=== PATIENT | male | born 1965 | race Caucasian/White ===

== ENCOUNTER → 2019-10-18 16:42 | Outpatient (CLI) | payer BC, SELFPAY ==
--- NOTE | ~2019-10-18 | MR_ITS ---
EXAMINATION: MR lumbar spine wo con DATE: 10/18/2019 17:48 INDICATION: Chronic right-sided low back pain without sciatica. TECHNIQUE: Magnetic resonance imaging (MRI) of the lumbar spine was performed without intravenous con trast. Sequences included sagittal T2-weighted FSE, sagittal T2-weighted FS FSE, sagittal STIR FSE, s agittal T1-weighted FSE, and axial T2-weighted FSE. COMPARISON: Lumbar spine MRI 10/17/2014 FINDINGS: There is 3 mm retrolisthesis of L1 on L2 and L2 on L3, 9 mm retrolisthesis of L3 on L4, and 3 mm anterolisthesis of L4 on L5. There are Schmorl's nodes at most levels. There is mildly decrease d disc height at L1-L2 and L2-L3 and moderately decreased disc height at L3-L4. The distal spinal cor d signal intensity is normal. The conus medullaris is at L1. The following disc levels are specifical ly discussed: L1-L2: There is a left central extrusion. There is mild bilateral facet joint osteoarthritis. There i s mild left neural foraminal stenosis. There is mild central canal stenosis. L2-L3: The disc is bulging and has an annular fissure. There is mild bilateral facet joint osteoarthr itis. There is mild bilateral neural foraminal stenosis. There is mild central canal stenosis. L3-L4: The disc is bulging and has an annular fissure. There is mild bilateral facet joint osteoarthr itis. There is mild bilateral neural foraminal stenosis. There is mild central canal stenosis. L4-L5: The disc is bulging and has an annular fissure. There is severe bilateral facet joint osteoart hritis. There is mild bilateral neural foraminal stenosis. There is mild central canal stenosis. L5-S1: The disc is bulging and has an annular fissure. There is severe right and moderate left facet joint osteoarthritis. There is mild bilateral neural foraminal stenosis. There is mild central canal stenosis. IMPRESSION: 1. Moderate lumbar spondylosis, stable from 10/17/2014. Reviewed, dictated and finalized at location A. H SHRINKING SUPERVISOR
== END ==
PROVIDERS: Visit Provider Family Medicine
DX: M47.816 Spondylosis without myelopathy or radiculopathy, lumbar region (principal)
CPT/HCPCS: 72148

== ENCOUNTER → 2022-07-19 07:50 | Outpatient (CLI) | payer BC, SELFPAY ==
--- NOTE | ~2022-07-19 | CT_ITS ---
EXAMINATION: CT abdomen pelvis wo/w con DATE: 07/19/2022 08:48 INDICATION: Gross hematuria TECHNIQUE: Computed tomography (CT) of the abdomen and pelvis was performed without and subsequently with 130 CC Omnipaque 350 intravenous contrast. Automated exposure control and iterative reconstructi on technique were employed. Exam dose: 2507.19 mGy-cm total exam DLP. COMPARISON: 07/19/2022 KUB FINDINGS: Soft tissue detail is limited due to body habitus. The lung bases are clear. Normal heart size. No pericardial or pleural effusion. Small sliding hiatal hernia. The liver, gallbladder, bile ducts, spleen, pancreas, pancreatic duct, and adrenal glands are unremar kable. There is an indeterminate exophytic 2 cm lesion of the anterosuperior aspect of the right kidney. No urinary tract calculus or hydroureteronephrosis. The urinary bladder appears unremarkable. There i s moderate prostate enlargement. Normal caliber of the abdominal aorta. No intraperitoneal or retroperitoneal or pelvic mass lesion or adenopathy or ascites is noted. Normal appendix. No bowel obstruction or intraperitoneal free air. Fat-containing umbilical hernia. Degenerative spurring of the thoracic spine and prominent degenerative disc disease of the lumbar spi ne. No apparent suspicious osteolytic or osteoblastic lesions are noted. IMPRESSION: Very limited examination due to poor soft tissue detail is a result of body habitus Approximately 2 cm indeterminate exophytic mass in the anterior aspect of the upper pole right kidney ; hypernephroma is not excluded. Consider MR renal examination for further evaluation Reviewed, dictated and finalized at Location A. Reviewed, dictated and finalized at location A. E GAMES DUAL RATE SUPERVISOR IMPRESSION: Very limited examination due to poor soft tissue detail is a resul t of body habitus Approximately 2 cm indeterminate exophytic mass in the anterior aspect of the u pper pole right kidney; hypernephroma is not excluded. Consider MR renal examin ation for further evaluation
--- NOTE | ~2022-07-19 | XR_ITS ---
EXAMINATION: XR abdomen/kub 1V DATE: 07/19/2022 08:06 INDICATION: Gross hematuria TECHNIQUE: A supine view of the abdomen on 2 radiographs was obtained. COMPARISON: Hip and pelvis radiographs dated 09/22/2016 FINDINGS: Unchanged phlebolith in the left hemipelvis. A couple additional phleboliths versus heterotopic ossic les projecting over the left groin. No calcifications the abdomen or pelvis suspicious for nephrolith iasis. No dilated gas-filled loops of bowel to suggest obstruction. Moderate to severe lower lumbar s pondylosis. IMPRESSION: 1. No evident urolithiasis. Reviewed, dictated and finalized at location B. CAL LOGISTICS SPECIALIST IMPRESSION: 1. No evident urolithiasis.
[2022-07-19 08:23] LABS: Estimated Glomerular Filt Rate > 60
== END ==
PROVIDERS: PCP Family Medicine; Visit Provider Urology
DX: R31.0 Gross hematuria (principal)
CPT/HCPCS: 74018; 74178; Q9967

== ENCOUNTER → 2023-01-29 09:01 | Outpatient (CLI) | payer BC, SELFPAY ==
--- NOTE | ~2023-01-29 | US_ITS ---
EXAMINATION: US thyroid DATE: 01/29/2023 09:33 INDICATION: Nontoxic goiter, unspecified. TECHNIQUE: Multiple ultrasound images of the thyroid were obtained. COMPARISON: Thyroid ultrasound 03/28/2019 FINDINGS: The right thyroid lobe measures 4.5 x 1.7 x 2.0 cm. The left thyroid lobe measures 5.0 x 1.8 x 1.5 c m. There is normal echotexture and echogenicity throughout the thyroid gland. No discrete nodules id entified. Normal vascular flow is present. IMPRESSION: 1. Normal thyroid. Reviewed, dictated and finalized at location A. IMPRESSION: 1. Normal thyroid.
== END ==
PROVIDERS: PCP Internal Medicine Endocrinology, Diabetes & Metabolism; Visit Provider Internal Medicine Endocrinology, Diabetes & Metabolism
DX: E04.9 Nontoxic goiter, unspecified (principal)
CPT/HCPCS: 76536

== ENCOUNTER → 2023-02-02 09:49 | Outpatient (CLI) | payer BC, SELFPAY ==
--- NOTE | ~2023-02-02 | XR_ITS ---
Lumbosacral Spine: AP, oblique, and lateral views Clinical History: Pain Findings: The normal lordotic curve is maintained. No fracture or subluxation evident. There is advan rhett degenerative disc narrowing at L3-L4. There is advanced facet arthropathy at L4-L5 and L5-S1. The sacroiliac joints are normally outlined. Impression: Mild to moderate degenerative spondylosis, as detailed above. Reviewed, dictated and finalized at location M. Impression: Mild to moderate degenerative spondylosis, as detailed above.
== END ==
PROVIDERS: PCP Family Medicine; Visit Provider Chiropractor
DX: M47.896 Other spondylosis, lumbar region (principal)
CPT/HCPCS: 72110

== ENCOUNTER 2023-03-24 09:00 | Outpatient (CLI) | payer BC, SELFPAY ==
--- NOTE | ~2023-03-24 | PE_ITS ---
EXAMINATION: PET skull to mid thigh DATE: 03/24/2023 11:06 INDICATION: Multiple myeloma, remission status unspecified. TECHNIQUE: Blood glucose level was 160 mg/dL. 9.774 mCi of 18-fluorodeoxyglucose (18-FDG) was adminis tered i.v. Low dose computed tomography (CT) images were acquired from the base of the brain to the p roximal thighs for attenuation correction and anatomic localization. Automated exposure control was e mployed. Dose-length product (DLP) was 1521 mGy-cm. Positron emission tomography (PET) images were ac quired in the same distribution. COMPARISON: CT abdomen and pelvis 07/19/2022 FINDINGS: Head/neck: There are no pathologically enlarged lymph nodes. Chest: The lungs demonstrate minimal atelectasis. No pleural effusion. The heart size is normal. Ther e are coronary artery calcifications. No pericardial effusion. Abdomen/pelvis/proximal thighs: Sensitivity is decreased by obesity. The liver, gallbladder, spleen, pancreas, and adrenal glands are normal. There are cysts in the kidneys measuring up to 2.2 cm on the right. There are no dilated loops of bowel. The appendix is normal. There are no pathologically enla rged lymph nodes. There is no free intraperitoneal fluid. There are no lytic lesions of bone to sugge st multiple myeloma. IMPRESSION: 1. No evidence of multiple myeloma. Reviewed, dictated and finalized at location A.
[2023-03-24 09:30] LABS: Glucose Point of Care 160 mg/dl (65-105)
== END 2023-03-24 09:01 | disposition home or self-care (01) ==
PROVIDERS: PCP Family Medicine; Visit Provider Internal Medicine Hematology & Oncology
DX: C90.01 Multiple myeloma in remission (principal)
CPT/HCPCS: 78815; A9552

== ENCOUNTER → 2023-05-04 15:51 | Outpatient (CLI) | payer BC, SELFPAY ==
--- NOTE | ~2023-05-04 | XR_ITS ---
XR heel LT min 2V DATE: 05/04/2023 16:38 INDICATION: Left heel pain TECHNIQUE: Axial and lateral views COMPARISON: None FINDINGS: Mild plantar and posterior calcaneal enthesopathy. No associated erosive change or periosti tis is noted. No fracture or dislocation or bone destruction is detected. IMPRESSION: Mild plantar and posterior calcaneal enthesopathy Reviewed, dictated and finalized at location B.
== END ==
PROVIDERS: PCP Family Medicine; Visit Provider Family Medicine
DX: M79.672 Pain in left foot (principal); M77.32 Calcaneal spur, left foot
CPT/HCPCS: 73650

== ENCOUNTER 2025-02-04 07:16 | Outpatient (CLI) | payer BC, SELFPAY ==
--- OUTSIDE RECORDS SUMMARY | 2025-02-04 07:20 | XMS_ITS | Data Portability ---
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 Plan of Treatment Reminders Order Date Submit Date Provider Last Modified By Organization Details Last Modified Time Details Appointments None recorded. Lab PTH (parathyroi d hormone), intact, serum or plasma 2022 023 tanner Diaz, 2022 Donald Fried, [facility] [address], [place], [address], 3 15:44:21 calcium, ionized, quant ISE, serum or plasma 2022 023 tanner Diaz, 2022 Donald Fried, [facility] [address], [place], [address], 3 15:44:21 vitamin D, 25-hydroxy, total, serum 2022 023 tanner Diaz, 2022 Donald Fried, [facility] [address], [place], [address], 3 15:44:21 phosphorus, serum or plasma 2022 023 tanner Diaz, 2022 Donald Fried, [facility] [address], [place], [address], 3 15:44:22 magnesium, serum or plasma 2022 023 tanner Diaz, 2022 Donald Fried, [address], [place], [address], 3 15:44:22 protein electrophor esis panel, serum or plasma 2022 023 [facility], 2022 Donald Fried, [address], [place], [address], 3 12:17:11 immunofixat ion, urine 2022 023 [facility], 2022 Donald Fried, [address], [place], [address], 3 12:17:10 immunoelect rophoresis, serum 2022 023 [facility], 2022 Donald Fried, [address], [place], [address], 3 12:17:11 lipid panel, serum 2022 023 [facility], 2022 Donald Fried, [address], [place], [address], 3 12:00:16 HbA1c (hemoglobin A1c), blood 2022 023 [email or web address] [facility], 2022 Donald Fried, [address], [place], [address], 3 15:44:21 CMP, serum or plasma [email or web address], 20[address] Donald Fried, [address], [place], [address], 3 15:44:21 microalbumi n/creatinin e, mass ratio, urine 2022 023 [email or web address] [facility], 2022 Donald Fried, [address], [place], [address], 3 15:44:21 TSH + free T4, serum 2022 023 [email or web address] [facility], 2022 Donald Fried, [address], [place], [address], 3 10:03:45 Referral endocrinolo gy referral 2022 023 howard Espinoza MD, [address], [place], [address], 3 13:51:10 Procedures None recorded. Surgeries None recorded. Imaging None recorded. Medication Orders bempedoic acid 180 mg tablet 2022 023 [facility], [address], [place], [place], [id number], 3 11:32:24 Vascepa 1 gram capsule 2022 023 [facility], [address], [place], [place], [id number], 3 13:31:26 Mounjaro 2.5 mg/0.5 mL subcutaneou s pen injector [email or web address], [address], [place], [place], [id number], 3 13:28:00 Humulin R U-500 (Conc) Insulin Kwikpen 500 unit/mL (3 mL) subcutaneou s 2022 023 [facility], [address], [place], [place], [id number], 3 11:34:52 Farxiga 5 mg tablet 2022 023 [facility], [address], [place], [place], [id number], 3 11:36:13 Repatha SureClick 140 mg/mL subcutaneou s pen injector 2022 023 [facility], [address], [place], [place], [id number], 3 21:05:57 Mounjaro 5 mg/0.5 mL subcutaneou s pen injector 2022 023 [facility], [address] [facility] , [place], [place], [id number], 3 20:58:01 Patient TargetsNo targets recorded. Patient InstructionsNo instructions recorded. Reason for Referral Endocrinology Referral for U ncontrolled type 2 diabetes mellitus Referring Physician: Abbey Marquez, Endocrinology, Encounter Date: 05/13/2023 Results Created Date Observation Date Name Description Value Unit Range Abnormal Flag Note LastModifiedBy Organization Detail LastModifiedTime 01/30/20 23 01/29/2023 US, thyro id No observ ation record ed. [email or web address] [facility] 2022 Jose Fried [facility] [address], [place], [address], 02/02/2023 12:31:04 Result Notes None recorded. Problems Name Problem SNOMED Code Status Onset Date Resolution Date Notes Provider Name and Address Organization Details Recorded Time Hypercalcemia 82754694 Active 2022 Abbey Marquez MD [address], [place], [address] , [facility] [employer] 3 11:57:04 Pure hypercholeste rolemia 092065002 Active 2022 Abbey Marquez MD [address], [place], [address] , [facility] [employer] 3 11:59:21 Proteinuria 40434234 Active 2022 Abbey Marquez MD [address], [place], [address] , [facility] [employer] 3 21:52:07 Protein electrophores is outside reference range 560004298 Active 2022 Abbey Marquez MD [address], [address], [place], [address] , [facility] [employer] 3 21:01:36 Mixed hyperlipidemi a 729350353 Active 2022 Abbey Marquez MD [address], [address], [place], [address] , [facility] [employer] 3 11:31:44 Dyslipidemia 665311361 Active 2021 Not Available [facility] 3 00:51:44 Uncontrolled type 2 diabetes mellitus 835778505 Active 2021 Not Available [facility] 3 00:51:44 Problem Notes None recorded. Medical Equipment None Reported. Allergies Allergen ID Allergen Name Allergen Category Reaction Reaction Severity Criticality Documentation Date Start Date Code Code System Note Provider Name and Address Organization Details Recorded Time 974 Product containin g penicilli n (product) medicatio n eye swelling Not available Not available 11/03/2022 25871 8001 SNOMED sinus issue s Not Available [facility] 3 00:57:57 975 Compazine medicatio n other Not available Not available 11/03/202282252 6 RxNorm muscl e spasm s Not Available [facility] 3 00:57:57 Medications Name Sig Start Date Stop Date Status Note LastModified by Organization Details LastModified Time celecoxib 200 mg capsule 02/07 completed Not Available Not Available Not Available cyclobenzap rine 10 mg tablet 08/21 completed Not Available Not Available Not Available methocarbam ol 500 mg tablet 02/20 completed Not Available Not Available Not Available metformin 500 mg tablet 07/20 completed Not Available Not Available Not Available anastrozole 1 mg tablet active Not Available Not Available Not Available clindamycin HCl 300 mg capsule 05/13 completed Not Available Not Available Not Available BD Luer-Aydin Syringe 3 mL 25 x 5/8 active Not Available Not Available Not Available Humulin R U-500 (Concentrat ed) Insulin 500 unit/mL subcutaneou s soln INJECT UP TO 160 UNITS UNDER THE SKIN DAILY PER INSULIN PUMP. DISCARD REMAINDER AFTER 40 DAYS OF OPENING VIAL active Not Available Not Available No t Available azithromyci n 250 mg tablet 02/20 completed Not Available Not Available Not Available metoprolol succinate ER 50 mg tablet,exte nded release 24 hr TAKE 1 TABLET BY MOUTH DAILY. GENERIC EQUIVALEN T FOR TOPROL XL active Not Available Not Available No t Available hydrocodone 5 mg-acetamin ophen 325 mg tablet 02/20 completed Not Available Not Available Not Available testosteron e cypionate 100 mg/mL intramuscul ar oil Inject 0.5 mL every week by intramusc ular route. 02/07 completed Not Available Not Available Not Available valsartan 160 mg-hydrochl orothiazide 12.5 mg tablet Take 1 tablet every day by oral route. 02/07 completed Not Available Not Available Not Available Zyrtec 10 mg tablet Take 1 tablet every day by oral route. 2018 active Not Available Not Available Not Avai lable ciprofloxac in 500 mg tablet 02/20 completed Not Available Not Available Not Available sulfamethox azole 800 mg-trimetho prim 160 mg tablet TAKE 1 TABLET BY MOUTH TWICE A DAY FOR 10 DAYS active Not Available Not Available No t Available omeprazole 40 mg capsule,del ayed release active Not Available Not Available Not Available aspirin 81 mg tablet,marah yed release Take 1 tablet every day by oral route. 2018 active Not Available Not Available Not Avai lable doxycycline monohydrate 100 mg tablet 02/20 completed Not Available Not Available Not Available glimepiride 2 mg tablet Take 2 tablets twice a day by oral route before meals for 30 days. 07/20 completed Not Available Not Available Not Available ketorolac 10 mg tablet 02/20 completed Not Available Not Available Not Available Flarex 0.1 % eye drops,suspe nsion active Not Available Not Available Not Available terbinafine HCl 250 mg tablet active Not Available Not Available Not Available Depo-Testos terone 200 mg/mL intramuscul ar oil active Not Available Not Available Not Available prednisolon e acetate 1 % eye drops,suspe nsion active Not Available Not Available Not Available dexamethaso ne 1 mg tablet Take 1 tablet at 10 pm night before 8 am cortisol 05/13 completed Not Available Not Available Not Available Proctozone- HC 2.5 % topical cream perineal applicator 02/07 completed Not Available Not Available Not Available benzonatate 100 mg capsule active Not Available Not Available Not Available cephalexin 500 mg capsule 02/07 completed Not Available Not Available Not Available oseltamivir 75 mg capsule TAKE 1 CAPSULE BY MOUTH EVERY 12 HOURS FOR 5 DAYS active Not Available Not Available No t Available neomycin-po lymyxin-dex ameth 3.5 mg/mL-10,00 0 unit/mL-0.1 % eye drops 02/07 completed Not Available Not Available Not Available triamcinolo ne acetonide 0.1 % topical ointment active Not Available Not Available Not Available clotrimazol e-betametha sone 1 %-0.05 % topical cream active Not Available Not Available Not Available glimepiride 4 mg tablet Take 1 tablet twice a day by oral route before meals for 30 days. 02/07 completed Not Available Not Available Not Available naproxen 500 mg tablet,marah yed release active Not Available Not Available Not Available polymyxin B sulfate 10,000 unit-trimet hoprim 1 mg/mL eye drops 02/20 completed Not Available Not Available Not Available gabapentin 300 mg capsule active Not Available Not Available Not Available montelukast 10 mg tablet TAKE 1 TABLET BY MOUTH NIGHTLY. GENERIC EQUIVALEN T FOR SINGULAIR active Not Available Not Available No t Available mupirocin 2 % topical ointment APPLY 1 APPLICATI ON BY TOPICAL ROUTE 3 TIMES PER DAY FOR 10 DAYS active Not Available Not Available No t Available loteprednol etabonate 0.5 % eye drops,suspe nsion 05/22 completed Not Available Not Available Not Available ibuprofen 600 mg tablet 02/20 completed Not Available Not Available Not Available levofloxaci n 500 mg tablet 02/20 completed Not Available Not Available Not Available albuterol sulfate HFA 90 mcg/actuati on aerosol inhaler active Not Available Not Available Not Available Vitamin D2 1,250 mcg (50,000 unit) capsule Take 1 capsule (50,000 Units total) by mouth once a week active Not Available Not Available No t Available ondansetron 4 mg disintegrat ing tablet 02/07 completed Not Available Not Available Not Available metformin ER 500 mg tablet,exte nded release 24 hr TAKE 1 TABLET BY MOUTH TWICE DAILY BEFORE MEALS 02/20 completed Not Available Not Available Not Available BD Luer-Aydin Syringe 3 mL 22 x 1 09/06 active Not Available Not Available Not Available cholecalcif curtis (vitamin D3) 125 mcg (5,000 unit) capsule Take 1 Capsule (5,000 Units) by mouth daily. active Not Available Not Available No t Available doxycycline hyclate 100 mg tablet 05/22 completed Not Available Not Available Not Available diazepam 5 mg tablet 02/20 completed Not Available Not Available Not Available tobramycin 0.3 %-dexametha sone 0.1 % eye drops,suspe nsion 02/20 completed Not Available Not Available Not Available neomycin 3.5 mg/g-polymy perla B 10,000 unit/g-dexa meth 0.1 % eye oint 05/22 completed Not Available Not Available Not Available valsartan 160 mg-hydrochl orothiazide 25 mg tablet TAKE 1 TABLET BY MOUTH DAILY active Not Available Not Available No t Available moxifloxaci n 0.5 % eye drops active Not Available Not Available Not Available Pen Needle 31 gauge x 5/16 Inject up to 5 times daily 2022 active Not Available Not Available Not Avai lable nitrofurant oin monohydrate /macrocryst als 100 mg capsule active Not Available Not Available Not Available hydrochloro thiazide 12.5 mg tablet active Not Available Not Available Not Available peg 3350 240 gram-electr olytes 22.72 gram-6.72 g-5.84 g powdr for soln 02/07 completed Not Available Not Available Not Available Lantus Solostar U-100 Insulin 100 unit/mL (3 mL) subcutaneou s pen INJECT 50 UNITS IN THE MORNING AND 60 UNITS AT BEDTIME 05/09 completed Not Available Not Available Not Available Humalog KwikPen (U-100) Insulin 100 unit/mL subcutaneou s INJECT 20 UNITS SUBCUTANE OUSLY THREE TIMES A DAY BEFORE MEALS active Not Available Not Available No t Available naproxen sodium ER (CR) 500 mg tablet,exte nded release 24 hr mphase 08/21 completed Not Available Not Available Not Available BD Ultra-Fine Chasity Pen Needle 32 gauge x active Not Available Not Available Not Available gatifloxaci n 0.5 % eye drops 02/20 completed Not Available Not Available Not Available Pen Needle 30 gauge x 01/18 Use to inject insulin up to 5 times daily. active Not Available Not Available No t Available naftifine 2 % topical cream active Not Available Not Available Not Available Contour Next Test Strips Use 1 strip 4 times a day before meals as directed. active Not Available Not Available No t Available Vascepa 1 gram capsule TAKE TWO CAPSULES BY MOUTH TWICE A DAY BEFORE MEALS 2022 active Not Available Not Available Not Avai lable Naftin 2 % topical gel active Not Available Not Available Not Available Farxiga 10 mg tablet TAKE ONE TABLET BY MOUTH EVERY MORNING 05/13 completed Not Available Not Available Not Available Farxiga 5 mg tablet Take 1 tablet by mouth in the morning 2022 active Not Available Not Available Not Avai lable Praluent Pen 75 mg/mL subcutaneou s pen injector Inject 1 mL every 2 weeks by subcutane ous route in the morning for 30 days. 08/21 completed Not Available Not Available Not Available Repatha SureClick 140 mg/mL subcutaneou s pen injector active Not Available Not Available Not Available Tresiba FlexTouch U-200 insulin 200 unit/mL (3 mL) subcutaneou s pen Inject 100 units every day by subcutane ous route at bedtime for 30 days. 07/20 completed Not Available Not Available Not Available Humulin R U-500 (Conc) Insulin Kwikpen 500 unit/mL (3 mL) subcutaneou s INJECT UP TO 100 UNITS TWICE DAILY 2022 active Not Available Not Available Not Avai lable Aspercreme (lidocaine) 4 % topical patch 02/20 completed Not Available Not Available Not Available Afrezza 12 unit cartridge with inhaler 11/09 completed Not Available Not Available Not Available Dexcom G6 Sensor device active Not Available Not Available Not Available Dexcom G6 [employer] USE DIRECTED active Not Available Not Available No t Available Dexcom G6 Transmitter device active Not Available Not Available Not Available Omnipod Dash Pods (Gen 4) subcutaneou s cartridge CHANGE POD EVERY 72 HOURS active Not Available Not Available No t Available Afrezza (regular insulin) 8 unit (90)/12 unit (90) cartridge,i nhaler Inhale 12 units 3 times a day by inhalatio n route before meals for 30 days. 11/09 completed Not Available Not Available Not Available OneTouch Delica Plus Lancet 33 gauge test sugars 4 times a day before meals x 90 days active Not Available Not Available No t Available Rybelsus 7 mg tablet Take 1 tablet every day by oral route in the morning for 30 days. active Not Available Not Available No t Available Nexletol 180 mg tablet Take 1 tablet every day by oral route at bedtime for 90 days. active Not Available Not Available No t Available OneTouch Verio Reflect Meter active Not Available Not Available Not Available Paxlovid 300 mg (150 mg x 2)-100 mg tablets in a dose pack TAKE 3 TABLETS BY MOUTH TWICE A DAY FOR 5 DAYS 05/13 completed Not Available Not Available Not Available Mounjaro 5 mg/0.5 mL subcutaneou s pen injector Inject 5 mg every week by subcutane ous route at dinner for 90 days. 2022 active Not Available Not Available Not Avai lable Mounjaro 2.5 mg/0.5 mL subcutaneou s pen injector Inject 2.5 mg every week by subcutane ous route at dinner for 90 days. active Not Available Not Available No t Available Omnipod 5 G6-G7 Pods (Gen 5) subcutaneou s cartridge active Not Available Not Available Not Available Vitals Date Recorded Body mass index (BMI) Body height Oxygen saturation Oxygen saturation in Arterial blood by Pulse oximetry Heart rate Respiratory rate Body temperature Body weight Systolic blood pressure Diastolic blood pressure Provider Name and Address Organization Details Last Updated DateTime 3 59.3 kg/m2 187.96 cm 95 % 95 % 97 /min 18 /min 97.6 [degF] 081048. 67 g 140 mm[Hg] 88 mm[Hg] Not Available [facility] 3 00:48:27 Date Recorded Body height Oxygen saturation Oxygen saturation in Arterial blood by Pulse oximetry Heart rate Body temperature Systolic blood pressure Diastolic blood pressure Provider Name and Address Organization Details Last Updated DateTime 2 187.96 cm 97 % 97 % 88 /min 98 [degF] 150 mm[Hg] 80 mm[Hg] Not Available [facility] 3 00:48:27 Date Recorded Body height Body mass index (BMI) Body weight Body temperature Heart rate Systolic blood pressure Diastolic blood pressure Provider Name and Address Organization Details Last Updated DateTime 3 187.96 cm 59.7 kg/m2 818853. 02 g 97.9 [degF] 89 /min 118 mm[Hg] 66 mm[Hg] MENDEZ Jane [facility] [employer] [facility] 3 11:37:03 Date Recorded Body height Body mass index (BMI) Body weight Respiratory rate Body temperature Heart rate Systolic blood pressure Diastolic blood pressure Provider Name and Address Organization Details Last Updated DateTime 3 187.96 cm 57.1 kg/m2 003362. 6 g 16 /min 97.9 [degF] 79 /min 112 mm[Hg] 68 mm[Hg] Justyna Banks RN [facility] [employer] [facility] 3 11:07:13 Date Recorded Body mass index (BMI) Body height Oxygen saturation Oxygen saturation in Arterial blood by Pulse oximetry Heart rate Body temperature Body weight Systolic blood pressure Diastolic blood pressure Provider Name and Address Organization Details Last Updated DateTime 2 60.7 kg/m2 187.96 cm 97 % 97 % 80 /min 97.6 [degF] 659492. 19 g 140 mm[Hg] 90 mm[Hg] Not Available [facility] 3 00:48:27 Social History Question Answer Notes LastModified by Organizat ion Details LastModified Time Tobacco Smoking Status Never Smoker Not Available [facility] 11/03/2022 00:44:05 What Is Your Level Of Caffeine Consumption? Heavy [id number] Information not available 11/03/2022 How Much Tobacco Do You Chew? None [id number] Information not available 11/03/2022 In The 14 Days Before Symptom Onset, Have You Had Close Contact With A Laboratory-confirm ed COVID-19 While That Case Was Ill? No [id number] Information not available 11/03/2022 In The 14 Days Before Symptom Onset, Have You Had Close Contact With A Person Who Is Under Investigation For COVID-19 While That Person Was Ill? No [id number] Information not available 11/03/2022 Which Illicit Or Recreational Drugs Have You Used? None [id number] Information not available 11/03/2022 How Much Tobacco Do You Smoke? No [id number] Information not available 11/03/2022 Sex: Unknown Functional Status Question Answer Note LastModified by Organizat ion Details LastModified Time What is your level of alcohol consumption? Occasional [id number] Information not available 11/03/2022 Do you or have you ever used smokeless tobacco? Never used smokeless tobacco [id number] Information not available 11/03/2022 Do you or have you ever used e-cigarettes or vape? Never used electronic cigarettes [id number] Information not available 11/03/2022 Mental Status None recorded. Family History Relationship Description Onset Age of this Age Resolved Age Notes LastModified by Organization Details LastModified Time Mother Malignant tumor of breast [id number] Not available 11/03/2022 00:46:46 Mother Diabetes mellitus [id number] Not available 11/03/2022 00:46:46 Father Malignant tumor of colon [id number] Not available 11/03/2022 00:46:46 Father Hypertensive disorder [id number] Not available 11/03/2022 00:46:46 Father Diabetes mellitus [id number] Not available 11/03/2022 00:46:46 Medical History Condition Response USE OF BLOOD THINNERS Y Low Testosterone Y DIABETES, TYPE Y HYPERTENSION Y HIGH CHOLESTEROL / HYPERLIPIDEMIA Y EYE PROBLEMS Y Past Encounters Encounter ID Performer Location Encounter Start Date Encounter Closed Date Diagnosis/Indication Diagnosis SNOMED-CT Code Diagnosis ICD10 Code Diagnosis Note [id number] Abbey Marquez MD [facility] [address] [place] [address] 11/07/2020 00:00:00 11/07/2020 19:19:15 [id number] Abbey Marquez MD DEWAYNE [facility] [address] [place] [address] 02/20/2021 00:00:00 02/20/2021 18:43:34 [id number] MD ZAYNAB Vanegas [facility] [address] [place] [address] 05/22/2021 00:00:00 05/23/2021 10:33:21 [id number] Abbey Marquez MD [facility] [address] [place] [address] 08/21/2021 00:00:00 08/21/2021 17:33:21 [id number] Abbey Marquez MD [facility] [address] [place] [address] 12/22/2021 00:00:00 12/22/2021 20:53:55 [id number] Abbey Marquez MD [facility] [place] [address] [place] [address] 07/06/2022 00:00:00 07/06/2022 13:22:24 [id number] Abbey Marquez MD [facility] [place] [address] [place] [address] 10/29/2022 00:00:00 10/29/2022 21:37:06 [id number] Abbey Marquez MD [facility] [place] [address] [place] [address] 02/04/2023 11:22:41 02/04/2023 12:29:59 Uncontrolled type 2 diabetes mellitus [id number] E11.65 a1c of 10.4% up from 9.5%- patient admits to poor control and poor diet. He has in past refused metformin due to diarrhea, GLP1 agonists due to sulfur burps and gastric bypass to manage his weight. We recent performed DST and this was normal so patient does not have evidence of hypercorti solism. Continue on farxiga 5 mg daily along with U500 injections (he had reaction to adhesive with omnipod)- continue with 90 to 100 units TID before meals - he is aware to self titrate by increasing by 5 units every 5 days until fasting glucose running 90-130 mg/dL fasting and to take only half his usual dose if NPO or fasting for any imaging or studies for any reason in future to avoid hypoglycem ia. Patient aware he is not having any progress on his current regimen and is willing to trial on mounjaro- no known hx of pancreatit is- he had normal DST -no evidence of hypercorti solism. Recommende d GLP1 agonist therapy as he is having trouble at times with cravings of sweets and portion control. 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 He has no hx of pancreatit is or medullary thyroid cancer and is willing to trial on a GLP1 agonist therapy. He was advised to contact clinic if he experience s any nausea, vomiting or significan t thyroid pain / swelling or abdominal pain so we can discuss and discontinu e and potentiall y look to other therapy. Will trial on mounjaro 2.5 mg SQ weekly x 4 weeks then increase to 5 mg SQ weekly with largest meal of that day as tolerated. Patient is aware goal average glucose is 140 mg/dL and less to maintain a1c of 7% or less consistent ly. I had a very thorough discussion regarding diabetes and complicati ons of diabetes. Risks, benefits and side effects of all medication s and therapy up to and including were discussed in detail with patient. This included not following physician recommenda tions. Patient is alert and oriented times four. Patient made their own informed and educated decision regarding his diabetic care and control in addition to lipid control. Hypercalcemia [id number] E 83.52 Send for full calcium workup to screen for parathyroi d disease or protein disorders. His DST was normal so no evidence of hypercorti solism. Pure hypercholesterolemia [id number] E78.00 Patient has significan t myalgias on statin therapy and will not take statins- LDL of 139 mg/dL- will trial on PCSK9 inh therapy as patient is high risk for CAD/CVD events. Spent up to 28 minutes preparing to see the patient (eg, review of tests), obtaining and/or reviewing separately obtained history, performing a medically appropriat e examinatio n and evaluation , counseling and educating the patient, ordering medication s, tests, along with documentin g clinical informatio n in the electronic health record, independen tly interpreti ng results and communicat ing results to the patient. RTC in3-4 months. Patient was provided a handwritte n lab order which contains our fax number. If he chooses to go outside of the [facility] system to obtain labwork he was advised to provide our fax number and my informatio n to the lab he will be obtaining labwork from in order to have his labs properly forwarded over for me to review so there is no loss of follow up due to use of outside network. He was also advised to contact our clinic informing us that he has completed his labwork so we are aware we will need to reach out to the appropriat e laboratory to request his results be forwarded to us so I might have the ability to review and make further medical decision making in his case. He voiced understand ing. [id number] Abbey Marquez MD [facility] [address] [place] [address] 05/13/2023 10:44:55 05/13/2023 13:51:10 Uncontrolled type 2 diabetes mellitus [id number] E11.65 a1c of 8.9% down from 10.5% - patient has lost over 30 pounds- tolerating low dose mounjaro well- continue the 2.5 mg once weekly dose and he does have the 5 mg dose at home. Encouraged patient to eat a healthy high fiber diet to help regulate stools and avoid smoked, fatty/frie d foods as this will further contribute to poor colonic health. Continue on U500 60-90 units before breakfast and before dinner and patient aware of self titration to maintain fasting glucose 90-130 mg/dL. Continue dexcom sensor/tra nsmitter as he is doing better with close monitoring and compliant with use. Continue farxiga 5 mg daily as patient tolerating well. refer to endocrinol ogy per patient request Mixed hyperlipidemia [id number] E78.2 Patient cannot tolerate statin therapy- repatha was denied- LDL over goal range- will send in bempedoic acid as patient high risk for CAD/CVD events. continue vascepa as TG in range. Spent up to 25 minutes preparing to see the patient (eg, review of tests), obtaining and/or reviewing separately obtained history, performing a medically appropriat e examinatio n and evaluation , counseling and educating the patient, ordering medication s, tests, along with documentin g clinical informatio n in the electronic health record, independen tly interpreti ng results and communicat ing results to the patient. Patient can be followed by PCP - she/he is aware of my resignatio n and last day of June 17. If needed his/her PCP can refer patient to another endocrinol ogist in the area. All questions /concerns answered and refills necessary at visit today. Health Concerns Section Related Observation LastModified by Organization Detai ls LastModified Time None Recorded Concern Status LastModified by Organization Details LastModified Time None Recorded Advance Directives Directive None Recorded Payers Encounter Date Sequence Insurance Name Policy Number Policy Rivera Covered Member ID Rivera Member ID Guarantor Name 02/04/2023 1 [facility] [id number] Campbell Jo [id number] Campbell Swanson [place] 05/13/2023 1 [employer] [id number] Campbell Jo [id number] Campbell Jo Notes Date Note Type Note Provider Name and Address Organization Details Recorded Time 02/04/2023 text/html 57 yo male comes in for follow up in management of poorly controlled type 2 DM (A1C of 10.4%), mixed dyslipidemia. New finding of hypercalcemia. last seen in Oct at that time we had patient continue on farxiga but drop down to 5 mg daily. Patient cannot tolerate and will not take metformin or GLP1 agonist therapy.We had patient continue back on the U500 injections (he had reaction to adhesive with omnipod)- continue with 90 to 100 units TID before meals - he is aware to self titrate by increasing by 5 units every 5 days until fasting glucose running 90-130 mg/dL fasting and to take only half his usual dose if NPO or fasting for any imaging or studies for any reason in future to avoid hypoglycemia. He is taking the U500 twice daily. He is still taking farxiga 5 mg daily. we continue to recommend medication for his cholesterol due to his high risk for heart disease, stroke etc but patient refuses knowing he is high risk. He is more open today as he realizes his sugars are not improving even on high dose U500 insulin and farxiga. Sugars are running over 200 mg/dL fastingover 180 mg/dL before mealsdenies any hypoglycemia DST normal with cortisol of 0.7 ug/dL labs from 01/22/23:calcium 10.4 mg/dL206/173/36/13 9glucose 160 mg/dLTSH of 1.840 uIU/mlFT3 of 1.31 ng/dLA1C of 10.5%microalbumin 12 ug/mgLFT normalCr normal Abbey Marquez MD [address], [facility] [address], [place], [address], [facility] [employer] 02/04/2023 21:08:25 05/13/2023 text/html 58 yo male comes in for follow up in management of uncontrolled type 2 DM (A1C of 8.9% down from 10.5%), mixed dyslipidemia and obesity. 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 We had patient continue on farxiga 5 mg daily along with U500 injections (he had reaction to adhesive with omnipod)- continue with 90 to 100 units TID before meals - he is aware to self titrate by increasing by 5 units every 5 days until fasting glucose running 90-130 mg/dL fasting and to take only half his usual dose if NPO or fasting for any imaging or studies for any reason in future to avoid hypoglycemia. He is taking less U500 since going on the mounjaro 2.5 mg dose- he still has the 5 mg dose in the refrigerator. He is taking the mounjaro weekly. It depends on he U500 may take 60-90 units twice daily before meals. We also started mounjaro as last resort - he is overall tolerating well and has noted improvement in weight and glucose control. 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 we also trialed on repatha as LDL was high at 139 mg/dL. labs from 04/16/23:glucose 204 mg/dlCr normalLFT normalTSH 1.110 uIU/mLFT4 of 1.48 ng/dL176/160/37/11 1a1c 8.9% Abbey Marquez MD [address], [place] [address], [place], [address], [employer] 05/13/2023 13:31:33
[2025-02-04 08:30] LABS: Cortisol Random 5.76 ug/dL
== END 2025-02-04 07:17 | disposition home or self-care (01) ==
LOC: ANHLAB 07:18
PROVIDERS: PCP Family Medicine; Visit Provider Internal Medicine Endocrinology, Diabetes & Metabolism
DX: E11.65 Type 2 diabetes mellitus with hyperglycemia (principal); E78.5 Hyperlipidemia, unspecified; E55.9 Vitamin D deficiency, unspecified; E66.9 Obesity, unspecified; E34.9 Endocrine disorder, unspecified
CPT/HCPCS: 36415; 80299; 82533

== ENCOUNTER 2025-02-26 07:40 | Outpatient (CLI) | payer BC, SELFPAY ==
[2025-02-26 09:47] LABS: Cortisol Random 2.33 ug/dL
[2025-02-26 14:46] LABS: Dexamethasone Suppression Test 2.33 ug/dL
== END 2025-02-26 07:41 | disposition home or self-care (01) ==
PROVIDERS: PCP Family Medicine; Visit Provider Internal Medicine Endocrinology, Diabetes & Metabolism
DX: E11.65 Type 2 diabetes mellitus with hyperglycemia (principal); E78.5 Hyperlipidemia, unspecified; E55.9 Vitamin D deficiency, unspecified; E66.9 Obesity, unspecified; E34.9 Endocrine disorder, unspecified
CPT/HCPCS: 36415; 82533

== ENCOUNTER 2025-08-09 08:17 | Outpatient (CLI) | payer BC, SELFPAY ==
--- NOTE | ~2025-08-09 | US_ITS ---
US right upper quadrant INDICATION: Fatty liver PROCEDURE: Realtime right upper abdominal ultrasound. COMPARISON: No prior studies for comparison. FINDINGS: The pancreas is normal without focal mass or pancreatic ductal dilation. Liver echotexture is increased, consistent with fatty infiltration. There is normal directional flow in the portal vein. The gallbladder is normal without stones, gallbladder wall thickening or pericholecystic fluid. Common bile duct measures 6 mm. No sonographic Carney's sign. Right kidney measures 14.6 cm in length. There are small right renal cysts, largest measuring 3.3 cm. IMPRESSION: 1: Fatty infiltration of the liver. 2: Right renal cysts, largest measuring 3.3 cm. Reviewed, dictated and finalized at location I. [employer]
== END 2025-08-09 08:18 | disposition home or self-care (01) ==
LOC: MICIMG 08:18
PROVIDERS: PCP Family Medicine; Visit Provider Internal Medicine Endocrinology, Diabetes & Metabolism
DX: K76.0 Fatty (change of) liver, not elsewhere classified (principal); N28.1 Cyst of kidney, acquired
CPT/HCPCS: 76705